=== PATIENT | female | born 1980 | race Caucasian/White ===

== ENCOUNTER 2018-10-05 23:30 | Emergency (ER) | payer OTHER ==
[~2018-10-05] VITALS: Ht 154.9 cm; Wt 52.2 kg
--- NOTE | 2018-10-06 01:58 | NUR ---
LORETTA Geiger at bedside examining patient.
--- NOTE | 2018-10-06 02:00 | NUR ---
Patient to ER bed 6 to gown for evaluation. Side rails up.
--- NOTE | 2018-10-06 02:06 | NUR ---
Ambulatory to er s/p cut w/ xacto knife onset 2300h,no active bleeding at this time,+lac to rt knee approx 2 cm.pt described pain dull 2/10 pain scale.
[2018-10-06] MEDS ORDERED: LIDOCAINE/EPI 1% 1:100000 20 ML VIAL INJ ONE ×2 (02:15→02:16)
--- NOTE | 2018-10-06 02:20 | NUR ---
Dr. Geiger at bedside for laceration repair
--- NOTE | 2018-10-06 02:30 | NUR ---
Patient has a 1.5 cm laceration to RT Knee. Dr. Geiger applied sutures using sterile technique. Edges well approximated. Site cleansed with Iodine and NS. Dressing of Gauze and Bacitracin applied to site. No bleeding noted. Pt tolerated well.
--- NOTE | 2018-10-06 02:38 | NUR ---
Patient given written and verbal discharge instructions and verbalizes understanding. ER MD discussed with patient the results and treatment provided. Patient in stable condition. ID arm band removed. Patient educated on pain management and to follow up with PMD. Pain Scale 0/10. Opportunity for questions provided and answered. Medication side effect fact sheet provided.
== END 2018-10-06 02:38 | disposition home or self-care (01) ==
LOC: SED 23:30
DX: S81.011A Laceration without foreign body, right knee, initial encounter (principal); W26.0XXA Contact with knife, initial encounter; Y93.89 Activity, other specified; Y92.69 Other specified industrial and construction area as the place of occurrence of the external cause; Y99.8 Other external cause status
CPT/HCPCS: 99283